=== PATIENT | female | born 1940 | race Caucasian/White ===

== ENCOUNTER 2018-11-17 00:14 | Emergency (ER) | payer MEDICARE, BC ==
[2018-11-17] MEDS ORDERED: DIAZEPAM 2 MG TABLET PO ONE (01:58)
--- NOTE | 2018-11-17 02:00 | ER Document Report ---
ED General - General Chief Complaint: Near Syncope Stated Complaint: DIZZY Time Seen by Provider: 11/17/18 01:44 Primary Care Provider: ELROY CARRIZALES MD [NO LOCAL MD] - 11/19/18 Notes: Patient 78-year-old female presents with complaint of "feeling swimmy headed". Patient says on Monday she sat up and had a spinning sensation and felt very off balance. She went to her doctor and her doctor told her she had fluid in her sinus and behind the ears placed for meclizine. Submaximal has been helping. She took it this morning and at 1 PM. She said tonight she went to sit up and felt very "swimmy headed". She said she felt nauseous and did vomit. She also noticed that she felt a heaviness in her chest when she sat up. If she lays flat and does not move the symptoms go away. She does have a history of SVT. She denies any current chest pain. She says that whenever she gets up and moves around she again feels very dizzy. We will get her records she did have an MRI of her head in 2016 due to sensorineural hearing loss. This MRI was negative. TRAVEL OUTSIDE OF THE [place] IN LAST 30 DAYS: No - Related Data Allergies/Adverse Reactions: Sulfa (Sulfonamide Antibiotics) Allergy (Verified 11/17/18 02:06) Past Medical History - Social History Smoking Status: Never Smoker Frequency of alcohol use: None Drug Abuse: None Family History: Reviewed & Not Pertinent - Past Medical History Cardiac Medical History: Reports: Hx Atrial Fibrillation, Hx Hyperchol esterolemia, Hx Hypertension Past Surgical History: Reports: Hx Orthopedic Surgery - bilateral knee replacement - Immunizations Hx Pneumococcal Vaccination: 09/11/15 Review of Systems - Review of Systems Notes: My Normal Review Basic REVIEW OF SYSTEMS: CONSTITUTIONAL : Denies fever, chills, or sweats. Denies recent illness. EENT: No ear pain. CARDIOVASCULAR: Pressure upon sitting up. RESPIRATORY: Denies cough, cold, or chest congestion. Denies shortness of breath, difficulty breathing, or wheezing. GASTROINTESTINAL: Denies abdominal pain. Denies nausea, vomiting, or diarrhea. GENITOURINARY: Denies difficulty urinating, painful urination, burning, frequency, or blood in urine. MUSCULOSKELETAL: Denies neck or back pain or joint pain or swelling. SKIN: Denies rash or skin lesions. NEUROLOGICAL: Dizziness upon sitting up. ALL OTHER SYSTEMS REVIEWED AND NEGATIVE. Physical Exam - Vital signs Vitals: Temp Pulse Resp BP Pulse Ox 98.0 F 80 19 160/90 H 98 11/17/18 00:26 11/17/18 00:26 11/17/18 00:26 11/17/18 00:26 11/17/18 00:26 - Notes Notes: General Appearance: Well nourished, alert, cooperative, no acute distress, no obvious discomfort. Well-appearing Vitals: reviewed, See vital signs table. Head: no swelling or tenderness to the head Eyes: PERRL, EOMI, Conjuctiva clear Mouth: No decreasd moisture Throat: No tonsillar inflammation, No airway obstruction, No lymphadenopathy Neck: Supple, no neck tenderness, No thyromegaly Lungs: No wheezing, No rales, No rhonci, No accessory muscle use, good air exc hange bilaterally. Heart: Normal rate, Regular rythm, No murmur, no rub Abdomen: Normal BS, soft, No rigidity, No abdominal tenderness, No guarding, no rebound, no abdominal masses, no organomegaly Extremities: strength 5/5 in all extremities, good pulses in all extremities, no swelling or tenderness in the extremities, no edema. Skin: warm, dry, appropriate color, no rash Neuro: speech clear, oriented x 3, normal affect, responds appropriately to questions. Cranial nerves II through XII are intact. Distal sensation intact. Patient moves all 4 extremities without difficulty. Patient sits up she starts to feel nauseous and says she feels "swimmy headed". She also developed some chest pressure. The symptoms improve when she lays back flat. Course - Re-evaluation Re-evalutation: 11/17/18 04:18 Patient is feeling much improved after receiving the Valium. She is no longer feels dizzy. Dizziness is easy created with patient sitting up. She had recent vertigo diagnosis as well. CT scan of the head is negative and does not show any bleeding or signs of masses. She has no other focal neurologic deficits on exam. She did have some associated chest pressure as well however this also occurs when the patient sits up and occurs with the dizziness. Is easily reproducible by sitting the patient up in bed. Troponin and EKG are negative. I do not suspect coronary disease as etiology behind the chest pressure that she has. At this time will discharge home with a prescription for the Valium. I encouraged her to only take it when needed for her dizziness. I encouraged her follow-up with her doctor on Monday. She is to return to ER if she has worsening recurrent dizziness, recurrent chest pain, or if she feels unwell. Patient and agree with plan and patient will be discharged home. Dictation of this chart was performed using voice recognition software; therefore, there may be some unintended grammatical errors. - Vital Signs Vital signs: Temp Pulse Resp BP Pulse Ox 98.2 F 87 20 161/111 H 98 11/17/18 02:52 11/17/18 02:52 11/17/18 02:52 11/17/18 02:52 11/17/18 02:52 - Laboratory Result Diagrams: 11/17/18 02:55 11/17/18 02:55 Laboratory results interpreted by me: 11/17/18 02:55 BUN 34 H Est GFR (Non-Af Amer) 57 L Glucose 113 H AST 71 H Total Protein 8.3 H - EKG Interpretation by Me Additional EKG results interpreted by me: 11/17/18 03:12 EKG is reviewed and interpreted by me. EKG shows sinus rhythm with occasional PAC. Rate is approximately [address] segment elevation or depression. No ischemic T wave inversions. Old EKG for comparison is from December 31, 2015. Discharge - Discharge Clinical Impression: Dizziness Condition: Good Disposition: HOME, SELF-CARE Additional Instructions: Please take the Valium as needed for dizziness. Please follow up with your doctor on Monday for reevaluation. Please return to the ER immediately if you have chest pain, difficulty breathing, or recurring dizziness not improving with the medication. The valium may cause sleepiness so do not drive or do any exertional activities after taking it. Prescriptions: Diazepam [Valium 2 mg Tablet] 2 mg PO Q12HP PRN #10 tablet PRN Reason: Dizziness Referrals: ELROY CARRIZALES MD [NO LOCAL MD] - 11/19/18
--- NOTE | 2018-11-17 02:45 | RADIOLOGY REPORT (SQ) ---
EXAM DESCRIPTION: CT HEAD WITHOUT IV CONTRAST COMPLETED DATE/TME: 11/17/2018 02:03 CLINICAL HISTORY: 78 years, Female, dizziness COMPARISON: 07/21/2016 CT brain TECHNIQUE: 286 Images stored on PACS. All CT scanners at this facility use dose modulation, iterative reconstruction, and/or weight based dosing when appropriate to reduce radiation dose to as low as reasonably achievable (ALARA). [facility]: Dose Right [facility]: CareDose [facility]: Dose Right [facility]: Teradose 4D [facility]: [employer] LIMITATIONS: None. FINDINGS: Globes are intact. Paranasal sinuses and mastoid air cells are unremarkable. No displaced or depressed skull fracture. No intra or extra-axial hemorrhage. CT is limited for evaluation of acute infarct. No CT evidence for large or territorial acute infarct. Mild diffuse atrophy. Hypodensities in the periventricular and subcortical white matter consistent with sequelae of small vessel ischemic change. No mass or midline shift IMPRESSION: Mild diffuse atrophy with small vessel ischemic change TECHNICAL DOCUMENTATION: Quality ID # 436: Final reports with documentation of one or more dose reduction techniques (e.g., Automated exposure control, adjustment of the mA and/or kV according to patient size, use of iterative reconstruction technique) copyright 2011 [employer]- All Rights Reserved
--- NOTE | 2018-11-17 03:01 | RADIOLOGY REPORT (SQ) ---
EXAM DESCRIPTION: XR CHEST 1 VIEW COMPLETED DATE/TME: 11/17/2018 01:57 CLINICAL HISTORY: 78 years, Female, chest heaviness COMPARISON: 12/31/2015 chest NUMBER OF VIEWS: 1 TECHNIQUE: Portable chest LIMITATIONS: None. FINDINGS: Heart size normal. Atheromatous change thoracic aorta. Osteopenia. No pneumothorax. Lungs are clear IMPRESSION: No acute cardiopulmonary process copyright 2010 [employer]- All Rights Reserved
[2018-11-17 03:06] LABS: ABSOLUTE BASOPHILS # (AUTO) 0.1 10^3/uL (0.0-0.2); ABSOLUTE EOSINOPHILS # (AUTO) 0.1 10^3/uL (0.0-0.6); ABSOLUTE LYMPHOCYTES (AUTO) 1.3 10^3/uL (0.5-4.7); ABSOLUTE MONOCYTES (AUTO) 0.5 10^3/uL (0.1-1.4); ABSOLUTE NEUT (AUTO) 5.4 10^3/uL (1.7-8.2); BASOPHILS % (AUTO) 0.9 % (0-2); EOSINOPHILS % (AUTO) 1.9 % (0-6); HEMATOCRIT 39.4 % (36.0-47.0); HEMOGLOBIN 13.5 g/dL (12.0-15.5); LYMPHOCYTES % (AUTO) 17.2 % (13-45); MEAN CORPUSCULAR HEMOGLOBIN 30.5 pg (27.0-33.4); MEAN CORPUSCULAR HGB CONC 34.1 g/dL (32.0-36.0); MEAN CORPUSCULAR VOLUME 89 fl (80-97); PLATELET COUNT 269 10^3/uL (150-450); RED BLOOD COUNT 4.41 10^6/uL (3.72-5.28); RED CELL DISTRIBUTION WIDTH 13.8 % (11.5-14.0); TOTAL CELLS COUNTED % (AUTO) 100 %; WHITE BLOOD COUNT 7.4 10^3/uL (4.0-10.5)
[2018-11-17 03:22] LABS: ALANINE AMINOTRANSFERASE 36 U/L (9-52); ALBUMIN 4.9 g/dL (3.5-5.0); ALKALINE PHOSPHATASE 126 U/L (38-126); ANION GAP 12 (5-19); ASPARTATE AMINO TRANSFERASE 71 U/L (14-36); BILIRUBIN,DIRECT 0.3 mg/dL (0.0-0.4); BILIRUBIN,TOTAL 0.6 mg/dL (0.2-1.3); BLOOD UREA NITROGEN 34 mg/dL (7-20); CALCIUM 10.1 mg/dL (8.4-10.2); CARBON DIOXIDE 25 mmol/L (22-30); CHLORIDE 105 mmol/L (98-107); GLUCOSE 113 mg/dL (75-110); POTASSIUM 4.3 mmol/L (3.6-5.0); SODIUM 141.9 mmol/L (137-145); TOTAL PROTEIN 8.3 g/dL (6.3-8.2)
[2018-11-17 04:37] VITALS: BP 156/94
--- NOTE | 2018-11-17 12:38 | EKG REPORT ---
SEVERITY:- OTHERWISE NORMAL ECG - SINUS RHYTHM APC's : Confirmed by: Nicolette Torres MD 17-Nov-2018 12:37:30
== END 2018-11-17 04:37 | disposition home or self-care (01) ==
LOC: ER 00:14
DX: R42 Dizziness and giddiness (principal); I49.1 Atrial premature depolarization; R07.89 Other chest pain; J34.89 Other specified disorders of nose and nasal sinuses; R11.2 Nausea with vomiting, unspecified; I10 Essential (primary) hypertension; Z86.79 Personal history of other diseases of the circulatory system; Z88.2 Allergy status to sulfonamides
CPT/HCPCS: 93005; 99284; 36415; 85025; 80053; 84484; 71045; 70450; 93010; A9270; J3490

== ENCOUNTER 2020-06-11 11:44 | Day surgery (SDC) | payer MEDICARE, BC ==
[2020-06-11] MEDS ORDERED: PROPOFOL INJ 200 MG/20 ML VIAL IV ONE (12:35)
--- NOTE | 2020-06-11 14:13 | PDOC CONSULTATION ---
Consultation Consult Date: 06/11/20 Provider Consulted: MANOLO CRUZ Consult reason:: Atrial fibrillation History of Present Illness Patient complains of: Fatigue History of Present Illness: ROOPA DANIEL is a 79 year old female With the following active problems 1. Supraventricular tachycardia 2. Systemic embolism 3. Dyslipidemia 4. Renal artery stenosis 5. Gout Patient was seen at the [facility] with new onset atrial fibrillation. Her symptoms included fatigue. She was rate controlled. I had discussed transesophageal echocardiogram followed by cardioversion to restore sinus rhythm on the week that she presented. However she was reluctant to proceed due to concerns of ongoing viral pandemic. Subsequently she agreed to proceed with transesophageal echocardiogram followed by cardioversion. Since my evaluation in the office interval history has been negative. No new complaints or symptoms other than fatigue. No palpitations or syncope is reported. Past Medical History Cardiac Medical History: Reports: Atrial Fibrillation, Hyperlipidema, Hypertension Denies: Coronary Artery Disease, Myocardial Infarction Pulmonary Medical History: Denies: Asthma, Bronchitis, Chronic Obstructive Pulmonary Disease (COPD), Pneumonia Neurological Medical History: Denies: Seizures Hematology: Denies: Anemia Past Surgical History Past Surgical History: Reports: Orthopedic Surgery - bilateral knee replacement Social History Smoking Status: Never Smoker Frequency of Alcohol Use: None Hx Recreational Drug Use: No Drugs: None Hx Prescription Drug Abuse: No Family History Family History: Reviewed & Not Pertinent Parental Family History Reviewed: Yes - No familial illnesses Children Family History Reviewed: NA Sibling(s) Family History Reviewed.: NA Medication/Allergy Home Medications: Levothyroxine Sodium 75 mcg PO DAILY 12/28/15 Allopurinol [Zyloprim 300 mg Tablet] 150 mg PO DAILY 06/11/20 Apixaban [Eliquis 5 mg Tablet] 5 mg PO DAILY 06/11/20 Diazepam [Valium] 5 mg PO DAILY 06/11/20 Diltiazem HCl [Cardizem Cd 120 mg Capsule] 180 mg PO Q12 06/11/20 Losartan Potassium 100 mg PO DAILY 06/11/20 Meclizine HCl 25 mg PO DAILY 06/11/20 Vit D3/Folic Acid/B2/B6/B12 [Folgard Tablet] 1 tab PO DAILY 06/11/20 Allergies/Adverse Reactions: Sulfa (Sulfonamide Antibiotics) Allergy (Verified 11/17/18 02:06) Physical Exam Vital Signs: Temp Pulse Resp BP Pulse Ox 97.4 F 63 17 108/87 H 97 06/11/20 13:57 06/11/20 13:57 06/11/20 13:57 06/11/20 13:57 06/11/20 13:57 Intake & Output 06/10/20 06/11/20 06/12/20 06:59 06:59 06:59 Intake Total 400 Balance 400 Weight 83.46 kg 83.46 kg General appearance: PRESENT: no acute distress, cooperative, well-developed, well-nourished Head exam: PRESENT: atraumatic, normocephalic Eye exam: PRESENT: conjunctiva pink, EOMI Mouth exam: PRESENT: moist Respiratory exam: PRESENT: symmetrical, unlabored Cardiovascular exam: PRESENT: irregular rhythm, +S1, +S2 Pulses: PRESENT: normal radial pulses GI/Abdominal exam: PRESENT: soft Rectal exam: PRESENT: deferred Neurological exam: PRESENT: alert, awake, oriented to person, oriented to place, oriented to time, oriented to situation Psychiatric exam: PRESENT: appropriate affect Skin exam: PRESENT: dry, intact, normal color Assessment & Plan - Diagnosis (1) Atrial fibrillation Qualifiers: Atrial fibrillation type: unspecified Qualified Code(s): I48.91 - Unspecified atrial fibrillation Is this a current diagnosis for this admission?: Yes Plan: New onset atrial fibrillation Symptoms include fatigue Echocardiogram with preserved ejection fraction and no significant valve abnormality. We will proceed with transesophageal echocardiogram followed by direct-current cardioversion with the hopes of restoring sinus rhythm Risks and benefits were discussed in great detail. Risks of transesophageal echocardiogram include anesthesia related side effects and drug related side effects. There is potential for injury to the mucosa of the esophagus and remote chance of esophageal perforation. There is potential for damage to the teeth and oral cavity. Overall the risk from transesophageal echocardiogram is pretty low. Direct-current cardioversion to restore sinus rhythm has low risk of stroke. There is risk of skin reyes and skin rashes due to poor electrical contact of the patches with the underlying skin. There is risk of precipitating another arrhythmia for which the treatment is again cardioversion. Anesthesia related side effects and drug effects can also occur.
--- NOTE | 2020-06-11 14:17 | Progress Note ---
Provider Note Provider Note: DIRECT CURRENT CARDIOVERSION Date : June 11, 2020 Procedure: Direct current cardioversion Anesthesia: General anesthesia Indication: Atrial fibrillation Clinical history: 79-year-old lady with systemic hypertension and dyslipidemia with prior history of supraventricular tachycardia status post catheter ablation who presented to the [facility] office with atrial fibrillation. Fatigue is the main complaint. Based on discussion we had in the office she has agreed to proceed with transesophageal echocardiogram followed by cardioversion. Transesophageal echocardiogram was initially performed which showed preserved left ventricular ejection fraction, no significant valve lesion, no left atrial appendage thrombus and no pericardial effusion. Based on this we decided to proceed with direct-current cardioversion. PROCEDURE The patient was brought to the holding area fasting and nonsedated state. Informed consent was obtained prior to the procedure. General anesthesia was administered. Please see anesthesia notes for medication details. Transesophageal echocardiogram was initially performed which showed left atrial appendage to be free from thrombus. There was spontaneous echo contrast noted in the left atrium as well as the left atrial appendage. The left ventricular ejection fraction was preserved and there was no significant valve lesion. The right ventricle was normal in size and function and there was no pericardial effusion. Patient's presenting rhythm was atrial fibrillation with controlled ventricular response. The patient's EKG and vital signs were monitored throughout. Once the patient was comfortably sedated a single direct current biphasic 200 J shock was administered across defibrillator patches applied in anteroposterior fashion across the chest. This did not result in druze of sinus rhythm. Direct- current cardioversion was repeated on 2 more occasions after a 5 to 7-minute waiting period after each shock. The patient tolerated the procedure well. Conclusion Unsuccessful cardioversion Plan Continue systemic anticoagulation-apixaban 5 mg twice daily without interruption Continue other medications Outpatient appointment and follow-up will be arranged to discuss other therapeutic options
--- NOTE | 2020-06-11 14:18 | Discharge Summary ---
Discharge Summary (SDC) - Discharge Final Diagnosis: Atrial fibrillation-unsuccessful cardioversion Condition: Stable Forms: EU Anesthesia D/C Instructions, Discharge POC-Surgical Service Treatment or Instructions: NO DRIVING TO DAY CONTINUE TAKING YOUR ELIQUIS PER DR CRUZ CALL OFFICE FOR FOLLOW-UP APPOINTMENT Referrals: MANOLO CRUZ MD [ACTIVE STAFF] - Respiratory Treatments at Home: Deep Breathing/Coughing Discharge Activity: Activity As Tolerated, No Driving Home Care Assistance: None Needed Report the Following to Your Physician Immediately: Shortness of Breath, Nausea, Vomiting, Increase in Pain, Fever over 101 Degrees, Unusual Bleeding, IV Site Infection Signs
--- NOTE | 2020-06-11 14:35 | XCELERA REPORT ---
Study ID: [id number] [address] [facility] [address] [facility] Report Name: ROOPA DANIEL Age: 79 yrs Gender: Female : 1940 Patient Status: Outpatient Patient Location: END Study Date: 06/11/2020 12:10 PM History: Atrial fibrillation Reason For Study: AFIB Ordering Physician: MANOLO CRUZ Performed By: Nicole Emmanuel Interpretation Summary Left ventricular systolic function is normal. Ejection Fraction = >55%. The right ventricle is normal in size and function. There is mild tricuspid regurgitation. There is mild mitral regurgitation. Trace aortic regurgitation. No hemodynamically significant valvular aortic stenosis. No thrombus is detected in the left atrial appendage. There is no pericardial effusion. Procedure A complete two-dimensional transesophageal echocardiogram was performed (2D, spectral and color flow Doppler). Informed consent for Transesophageal Echocardiogram, and use of a contrast agent as needed, was obtained prior to the procedure. The patient was brought to the ( Floor 5) in a fasting state. An intravenous line was placed. A topical anesthetic agent was used for oropharangeal anesthesia. A bite block was inserted. IV conscious sedation was administered using per Anesthesai team. The patient's vital signs, including blood pressure, heart rate, pulse oximetry and cardiac rhythm were monitored thoughout the procedure. The transesophageal probe was passed without difficulty. The patient tolerated the procedure well without evidence of orophangeal or esophageal trauma. Subsequent to all the images being obtained the probe was removed with out trauma. Left Ventricle The left ventricle is normal in size. There is no thrombus. There is normal left ventricular wall thickness. Left ventricular systolic function is normal. Ejection Fraction = >55%. No regional wall motion abnormalities noted. Right Ventricle The right ventricle is normal in size and function. Atria The interatrial septum is intact with no evidence for an atrial septal defect. The left atrium is mildly dilated. Spontaneous contrast in LA. Spontaneous contrast in left atrial appendage. No thrombus is detected in the left atrial appendage. Right atrial size is normal. Mitral Valve The mitral valve is grossly normal. There is no mitral valve stenosis. There is mild mitral regurgitation. Tricuspid Valve The tricuspid valve is normal in structure and function. There is mild tricuspid regurgitation. Aortic Valve The aortic valve opens well. No hemodynamically significant valvular aortic stenosis. Trace aortic regurgitation. Pulmonic Valve The pulmonic valve is not well visualized. Arteries The aortic root is normal size. Mild atherosclerotic plaque(s) in the aortic arch. Pericardium There is no pericardial effusion. : MANOLO CRUZ Anil
[2020-06-11 14:47] VITALS: BP 178/82
== END 2020-06-11 15:35 | disposition home or self-care (01) ==
LOC: END 11:44
PROVIDERS: ATTEND Internal Medicine
DX: I48.91 Unspecified atrial fibrillation (principal); I47.1 Supraventricular tachycardia; I10 Essential (primary) hypertension; E78.5 Hyperlipidemia, unspecified; I70.1 Atherosclerosis of renal artery; E07.9 Disorder of thyroid, unspecified; R53.83 Other fatigue; M10.9 Gout, unspecified; Z96.653 Presence of artificial knee joint, bilateral; Z88.1 Allergy status to other antibiotic agents; Z79.899 Other long term (current) drug therapy; Z03.818 Encounter for observation for suspected exposure to other biological agents ruled out
CPT/HCPCS: 93312; 93325; 01922; U0003; J2704; C9803; 1922; 87635; 93314